=== PATIENT | female | born 2000 | race Caucasian/White ===

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

== ENCOUNTER 2019-11-03 16:59 | Emergency (ER) | payer OTHER ==
[2019-11-03 18:10] LABS: #Eosinphils 0.1 thou/uL (0.0-0.7); #Lymphocytes 1.4 thou/uL (1.20-3.40); #Monocytes 0.4 thou/uL (0.11-0.59); #Neutrophils 3.5 thou/uL (1.40-6.50); %Basophils 0.9 % (0.0-1.0); %Monocytes 8.1 % (0.0-4.0); %Neutrophils 64.1 % (31.0-61.0); Hemoglobin 12.8 g/dL (12.0-16.0); Mean Corpuscular HGB CONC 34.7 g/dL (32.0-36.0); Mean Corpuscular Hemoglobin 31.5 pg (25.0-35.0); Mean Corpuscular Volume 90.8 fL (78.0-98.0); Mean Platelet Volume 6.7 fL (7.4-10.4); Platelet Count 225 thou/uL (130-400); RBC Distribution Width 11.3 % (11.5-14.5); Red Blood Cell (RBC) Count 4.06 mill/uL (4.00-5.20); White Blood Cell (WBC) Count 5.5 thou/uL (4.8-10.8)
[2019-11-03 18:42] LABS: ALT (SGPT) 14 U/L (8-55); AST (SGOT) 14 U/L (5-34); Albumin 4.9 g/dL (3.5-5.0); Alkaline Phosphatase 45 U/L (40-100); Anion Gap 13 mmol/L (10-20); BUN (Urea Nitrogen) 17 mg/dL (7.0-18.7); Bilirubin, Total 0.3 mg/dL (0.2-1.2); CK (CPK) 49 U/L (29-168); Calc. Creatinine Clearance 0 mL/min (70-130); Carbon Dioxide 28 mmol/L (22-29); Chloride 102 mmol/L (98-107); Estimated GFR-MDRD Greater than 90; Globulin 2.3 g/dL (2.4-3.5); Glucose 90 mg/dL (70-105); Potassium 3.8 mmol/L (3.5-5.1); Protein, Total 7.2 g/dL (6.0-8.3); Sodium 139 mmol/L (136-145)
== END 2019-11-03 20:31 | disposition home or self-care (01) ==
LOC: ERS 16:59
DX: T75.4XXA Electrocution, initial encounter (principal); F17.290 Nicotine dependence, other tobacco product, uncomplicated; W86.8XXA Exposure to other electric current, initial encounter
CPT/HCPCS: 36415; 80053; 82550; 85025; 99283

== ENCOUNTER 2022-01-10 11:51 | Emergency (ER) | payer BC, SELFPAY ==
[2022-01-10 14:41] LABS: #Basophils 0.1 thou/uL (0.0-0.2); #Lymphocytes 1.4 thou/uL (1.20-3.40); #Monocytes 0.5 thou/uL (0.11-0.59); #Neutrophils 4.9 thou/uL (1.40-6.50); %Basophils 0.8 % (0.0-1.0); %Eosinophils 0.6 % (0.0-10.0); %Lymphocytes 19.7 % (21.0-51.0); %Monocytes 7.8 % (0.0-10.0); %Neutrophils 71.1 % (42.0-75.0); Hemoglobin 12.5 g/dL (12.0-16.0); Mean Corpuscular HGB CONC 34.1 g/dL (32.0-36.0); Mean Corpuscular Hemoglobin 32.1 pg (27.0-31.0); Mean Corpuscular Volume 94.3 fL (78.0-98.0); Mean Platelet Volume 6.2 fL (7.4-10.4); Platelet Count 280 thou/uL (130-400); RBC Distribution Width 11.5 % (11.5-14.5); Red Blood Cell (RBC) Count 3.89 mill/uL (4.20-5.40); White Blood Cell (WBC) Count 6.9 thou/uL (4.8-10.8)
[2022-01-10 14:51] LABS: Bilirubin Negative (Negative); Blood, Urine Negative (Negative); Clarity Clear (Clear); Glucose, Urine (Dipstick) Normal (Negative); Ketone, Urine Negative (Negative); Leukocyte Negative Leu/uL (Negative); Nitrite Negative (Negative); Protein, Urine (Dipstick) Negative (Neg-Trace); Specific Gravity, Urine 1.009 (1.002-1.036); Urobilinogen Normal mg/dL (Less than 2); pH, Urine 5.5 (5.0-9.0)
[2022-01-10 14:56] LABS: ALT (SGPT) 17 U/L (8-55); AST (SGOT) 16 U/L (5-34); Albumin 4.7 g/dL (3.5-5.0); Alkaline Phosphatase 43 U/L (40-110); Anion Gap 12 mmol/L (10-20); BUN (Urea Nitrogen) 15 mg/dL (7.0-18.7); Bilirubin, Total 0.3 mg/dL (0.2-1.2); CRP (Inflammatory) Less than 0.50 mg/dL (= or < 0.5); Calc. Creatinine Clearance 0 mL/min (70-130); Calcium 9.2 mg/dL (7.8-10.44); Carbon Dioxide 24 mmol/L (22-29); Chloride 106 mmol/L (98-107); Globulin 2.3 g/dL (2.4-3.5); Glucose 94 mg/dL (70-105); Potassium 3.9 mmol/L (3.5-5.1); Sodium 138 mmol/L (136-145)
== END 2022-01-10 16:05 | disposition home or self-care (01) ==
LOC: ERS 11:51
DX: D36.10 Benign neoplasm of peripheral nerves and autonomic nervous system, unspecified (principal); G62.9 Polyneuropathy, unspecified; M41.9 Scoliosis, unspecified; Z87.891 Personal history of nicotine dependence
CPT/HCPCS: 36415; 72148; 80053; 81003; 85025; 86140

== ENCOUNTER 2022-01-24 06:54 | Inpatient (IN) | payer BC ==
[2022-01-24] MEDS ORDERED: Morphine 4 MG/ML VIAL ONE (07:40)
[2022-01-24 08:04] LABS: #Lymphocytes 0.7 thou/uL (1.20-3.40); #Monocytes 1.2 thou/uL (0.11-0.59); #Neutrophils 15.2 thou/uL (1.40-6.50); %Eosinophils 0.2 % (0.0-10.0); %Lymphocytes 3.9 % (21.0-51.0); %Neutrophils 88.8 % (42.0-75.0); Hemoglobin 12.2 g/dL (12.0-16.0); Mean Corpuscular HGB CONC 33.7 g/dL (32.0-36.0); Mean Corpuscular Hemoglobin 32.2 pg (27.0-31.0); Mean Corpuscular Volume 95.6 fL (78.0-98.0); Mean Platelet Volume 6.3 fL (7.4-10.4); Platelet Count 198 thou/uL (130-400); RBC Distribution Width 11.8 % (11.5-14.5); Red Blood Cell (RBC) Count 3.77 mill/uL (4.20-5.40); White Blood Cell (WBC) Count 17.1 thou/uL (4.8-10.8)
[2022-01-24 08:24] LABS: ALT (SGPT) 26 U/L (8-55); AST (SGOT) 18 U/L (5-34); Albumin 4.3 g/dL (3.5-5.0); Alkaline Phosphatase 46 U/L (40-110); Anion Gap 13 mmol/L (10-20); BUN (Urea Nitrogen) 14 mg/dL (7.0-18.7); Bilirubin, Total 0.5 mg/dL (0.2-1.2); Calc. Creatinine Clearance 0 mL/min (70-130); Carbon Dioxide 25 mmol/L (22-29); Chloride 103 mmol/L (98-107); Globulin 2.3 g/dL (2.4-3.5); Glucose 90 mg/dL (70-105); Potassium 3.7 mmol/L (3.5-5.1); Protein, Total 6.6 g/dL (6.0-8.3); Sodium 137 mmol/L (136-145)
[2022-01-24 08:37] LABS: BHCG - Serum Negative (NEGATIVE); Pregs Control Background? CLEAR/WHITE (CLR/WHITE); Pregs Control Bar Appear? YES (CONTROL BAR)
[2022-01-24] MEDS ORDERED: Midazolam HCl 2 mg/2 ml Vial ONE (09:49)
[2022-01-24 11:43] LABS: Bacteria/HPF None Seen HPF (None Seen); Bilirubin Negative (Negative); Blood, Urine 1+ (Negative); Clarity Clear (Clear); Glucose, Urine (Dipstick) Normal (Negative); Ketone, Urine Negative (Negative); Leukocyte Negative Leu/uL (Negative); Nitrite Negative (Negative); Protein, Urine (Dipstick) Negative (Neg-Trace); RBC/HPF 0-3 HPF (0-3); Specific Gravity, Urine 1.013 (1.002-1.036); Squamous Epithelial 0-3 HPF (0-3); Urobilinogen Normal mg/dL (Less than 2); WBC/HPF 0-3 HPF (0-3); pH, Urine 6.5 (5.0-9.0)
[2022-01-24 12:09] LABS: CSF Source CSF; Tube # 1
[2022-01-24 12:10] LABS: CSF RBC Count - Manual 36 /cu.mm (None Seen); CSF Source CSF; CSF WBC/NonHematics Count-Man 1 /cu.mm (0-5); Clarity Clear (Clear); Tube # 4
[2022-01-24 12:11] LABS: Clarity Hazy (Clear)
[2022-01-24 12:25] LABS: CSF RBC Count - Manual 1275 /cu.mm (None Seen)
[2022-01-24 12:37] LABS: CSF WBC/NonHematics Count-Man 3 /cu.mm (0-5)
[2022-01-24 13:07] LABS: CSF, Glucose 56 mg/dl (40-70); CSF, Protein 94 mg/dL (15-40)
[2022-01-24] MEDS ORDERED: methylPREDNISolone Sod Succ 1 GM in Sodium Chloride 0.9% 250 ML 250 ML IVPB SCH (13:30)
[2022-01-24 13:31] LABS: Color Of CSF Supernatant COLORLESS (Colorless); Tube # 1; Unspun CSF Color COLORLESS (Colorless)
[2022-01-24] MEDS ORDERED: Ondansetron ODT 4 MG TAB PO PRN (14:12)
[2022-01-24] MEDS ORDERED: HYDROcodone/Acetaminophen 5/325 mg Tablet PO PRN (14:12)
[2022-01-24] MEDS ORDERED: Ondansetron PF 4 MG/2 ML Vial IVP PRN (14:12)
[2022-01-24] MEDS ORDERED: Acetaminophen 325 MG TAB PO PRN (14:12)
[2022-01-24] MEDS ORDERED: Senokot S 8.6-50 MG TAB PO PRN (14:12)
[2022-01-24] MEDS ORDERED: Sodium Chloride 0.9% 500 ML IV SCH (15:15)
[2022-01-24] MEDS ORDERED: IMMUNE GLOBULIN IVPB SCH (16:30)
[2022-01-24] MEDS: Acetaminophen 325 MG TAB PO SCH ×2 (17:03→17:38)
[2022-01-24] MEDS: diphenhydrAMINE 25 MG CAP PO SCH ×2 (17:03→17:39)
[2022-01-24 17:59] VITALS: BMI 22.2
[2022-01-24 18:03] LABS: SARS-CoV-2 NAA Rapid Test Not Detected (NotDetected)
[2022-01-24] MEDS: Dexamethasone 4 mg/ml Vial SLOW IVP SCH ×2 (18:26→23:59)
[2022-01-24 20:01] VITALS: BP 125/69
[2022-01-25 03:28] LABS: #Lymphocytes 0.5 thou/uL (1.20-3.40); #Monocytes 0.1 thou/uL (0.11-0.59); #Neutrophils 12.4 thou/uL (1.40-6.50); %Basophils 0.4 % (0.0-1.0); %Lymphocytes 3.7 % (21.0-51.0); %Monocytes 0.5 % (0.0-10.0); %Neutrophils 95.4 % (42.0-75.0); Hemoglobin 12.4 g/dL (12.0-16.0); Mean Corpuscular HGB CONC 33.9 g/dL (32.0-36.0); Mean Corpuscular Hemoglobin 32.6 pg (27.0-31.0); Mean Corpuscular Volume 96.2 fL (78.0-98.0); Mean Platelet Volume 6.5 fL (7.4-10.4); Platelet Count 242 thou/uL (130-400); RBC Distribution Width 11.8 % (11.5-14.5); Red Blood Cell (RBC) Count 3.81 mill/uL (4.20-5.40)
[2022-01-25 03:47] LABS: Anion Gap 15 mmol/L (10-20); BUN (Urea Nitrogen) 20 mg/dL (7.0-18.7); Calc. Creatinine Clearance 134 mL/min (70-130); Calcium 9.6 mg/dL (7.8-10.44); Carbon Dioxide 25 mmol/L (22-29); Chloride 105 mmol/L (98-107); Glucose 151 mg/dL (70-105); Potassium 3.9 mmol/L (3.5-5.1); Sodium 141 mmol/L (136-145)
[2022-01-25] MEDS: Dexamethasone 4 mg/ml Vial SLOW IVP SCH ×2 (06:22→12:10)
[2022-01-25 15:34] LABS: Hemoglobin A1c 4.5 % (4.0-6.0)
[2022-01-25 15:49] VITALS: TEMP 97.4
[2022-01-26] MEDS ORDERED: Enoxaparin Sodium 40 MG/0.4 ML SYRINGE SC SCH (09:00)
== END 2022-01-25 15:59 | disposition short-term general hospital (02) | DRG 565 ==
LOC: ERS 06:54 → ERHOLD 13:43 → IMCU/EMU 16:41
PROVIDERS: ADMIT Internal Medicine; ATTEND Family Medicine
PROC: 009U3ZX Drainage of Spinal Canal, Percutaneous Approach, Diagnostic (ICD-10-PCS; principal; 2022-01-24)
DX: D36.14 Benign neoplasm of peripheral nerves and autonomic nervous system of thorax (principal); G95.29 Other cord compression; Z20.822 Contact with and (suspected) exposure to COVID-19; M41.9 Scoliosis, unspecified; R22.2 Localized swelling, mass and lump, trunk; M48.04 Spinal stenosis, thoracic region; Z87.11 Personal history of peptic ulcer disease; Z83.49 Family history of other endocrine, nutritional and metabolic diseases; Z87.891 Personal history of nicotine dependence
CPT/HCPCS: 36415; 62270; 70450; 71045; 72157; 72158; 80048; 80053; 81003; 81015; 82945; 83036; 83735; 84157; 84443; 84703; 85025; 87070; 87205; 89051; 93005; 93010; 96374; 96375; J1100; J2250; J2270; J2930; J7050; U0002